=== PATIENT | female | born 1980 | race Hispanic/Latino ===

== ENCOUNTER 2018-11-07 20:07 | Emergency (ER) | payer MEDICAID ==
[2018-11-07 20:59] LABS: Bilirubin,Urine NEG (Negative); Blood,Urine LG (Negative); Color,Urine Red (Yellow); Urobilinogen,Urine < 2.0 mg/dL (<2.0)
[2018-11-07] MEDS ORDERED: NACL 0.9% 1000 ML 1,000 ML IV ONE (20:59)
[2018-11-07 21:01] LABS: RBC,Urine > 182.0 /HPF (0.0-6.0)
--- NOTE | 2018-11-07 21:03 | Emergency Department Report ---
HPI - General Chief Complaint: Abdominal Pain Time Seen by Provider: 11/07/18 20:51 - HPI HPI: Room 26 The patient is 38-year-old female presented with a chief complaint of abdominal pain and vaginal bleeding. The patient states she is but does not know how far along she is. The patient states her LMP was in August and she has not yet seen an WEIGHT LOSS COUNSELOR or had an ultrasound for this . The patient states approximately one hour ago she developed lower abdominal pain initially on the left but now bilaterally as well as heavy vaginal bleeding. Patient states she's been passing blood as well as blood clots but does not believe she is passed tissue. The patient states she is gone through 2 pads so far and has had to change her clothes twice secondary to the vaginal bleeding. Location: Pelvis Duration: One hour Quality: Pain Severity: Moderate Modifying factors: [see above] Context: [see above] Mode of transportation: [not driving] ED Past Medical Hx - Past Medical History Previous Medical History?: No - Surgical History Past Surgical History?: Yes Additional Surgical History: C-Sec X1 - Family History Family history: no significant (none 2 weeks) - Social History Smoking Status: Former Smoker Substance Use Type: None (denies illicit drug use) ED Review of Systems ROS: Stated complaint: VAGINAL BLEEDING 10WKS Other details as noted in HPI Constitutional: no symptoms reported Eyes: denies: eye pain ENT: denies: throat pain Respiratory: no symptoms reported Cardiovascular: denies: chest pain Endocrine: no symptoms reported Gastrointestinal: abdominal pain Genitourinary: abnormal menses Musculoskeletal: denies: back pain Neurological: denies: headache Physical Exam - Physical Exam Vital Signs: Vital Signs 11/07/18 20:12 Temperature 98.9 F Pulse Rate 75 Respiratory 22 Rate Blood Pressure 175/79 O2 Sat by Pulse 97 Oximetry Physical Exam: GENERAL: The patient is well-developed well-nourished female lying on stretcher moaning, appearing to be in moderate discomfort. [] HEENT: Normocephalic. Atraumatic. Extraocular motions are intact. Patient has moist mucous membranes. NECK: Supple. Trachea midline CHEST/LUNGS: Clear to auscultation. There is no respiratory distress noted. HEART/CARDIOVASCULAR: Regular. There is no tachycardia. There is no gallop rub or murmur. ABDOMEN: Abdomen is soft, diffuse discomfort to palpation. Patient has normal bowel sounds. There is no abdominal distention. SKIN: There is no rash. There is no edema. There is no diaphoresis. NEURO: The patient is awake, alert, and oriented. The patient is cooperative. The patient has normal speech MUSCULOSKELETAL: There is no evidence of acute injury. ED Course Vital Signs 11/07/18 20:12 Temperature 98.9 F Pulse Rate 75 Respiratory 22 Rate Blood Pressure 175/79 O2 Sat by Pulse 97 Oximetry ED Medical Decision Making - Lab Data Result diagrams: 11/07/18 21:03 11/07/18 21:03 Laboratory Tests 11/07/18 11/07/18 11/07/18 20:30 21:03 21:03 WBC 12.0 H RBC 4.88 Hgb 12.9 Hct 37.9 MCV 78 L MCH 26 L MCHC 34 RDW 14.8 Plt Count 468 H Lymph % (Auto) 16.7 [place] % (Auto) 6.3 Eos % (Auto) 0.5 Baso % (Auto) 0.7 Lymph # 2.0 [place] # 0.8 Eos # 0.1 Baso # 0.1 Seg Neutrophils % 75.8 H Seg Neutrophils # 9.1 H Sodium 137 Potassium 4.1 Chloride 104.4 Carbon Dioxide 23 Anion Gap 14 BUN 8 Creatinine 0.5 L Estimated GFR > 60 BUN/Creatinine Ratio 16 Glucose 89 Calcium 9.6 Total Bilirubin 0.20 AST 15 ALT 18 Alkaline Phosphatase 66 Total Protein 7.1 Albumin 3.9 Albumin/Globulin Ratio 1.2 HCG, Quant Urine Color Red Urine Turbidity Slightly-cloudy Urine pH 6.0 Ur Specific [place] 1.006 Urine Protein 100 mg/dl Urine Glucose (UA) Neg Urine Ketones Neg Urine Blood Lg Urine Nitrite Neg Urine Bilirubin Neg Urine Urobilinogen < 2.0 Ur Leukocyte Esterase Tr Urine WBC (Auto) 3.0 Urine RBC (Auto) > 182.0 Blood Type Antibody Screen 11/07/18 11/07/18 21:03 21:03 WBC RBC Hgb Hct MCV MCH MCHC RDW Plt Count Lymph % (Auto) [place] % (Auto) Eos % (Auto) Baso % (Auto) Lymph # [place] # Eos # Baso # Seg Neutrophils % Seg Neutrophils # Sodium Potassium Chloride Carbon Dioxide Anion Gap BUN Creatinine Estimated GFR BUN/Creatinine Ratio Glucose Calcium Total Bilirubin AST ALT Alkaline Phosphatase Total Protein Albumin Albumin/Globulin Ratio HCG, Quant 14726 H Urine Color Urine Turbidity Urine pH Ur Specific [place] Urine Protein Urine Glucose (UA) Urine Ketones Urine Blood Urine Nitrite Urine Bilirubin Urine Urobilinogen Ur Leukocyte Esterase Urine WBC (Auto) Urine RBC (Auto) Blood Type O POSITIVE Antibody Screen Negative - Radiology Data Radiology results: report reviewed (pelvic ultrasound), image reviewed (pelvic ultrasound) [facility] [address] [place] [address] Ultrasound Report Signed Patient: ARLETTE MCMAHAN MR#: [id number] : 1980 Acct:[id number] Age/Sex: 38 / F ADM Date: 11/07/18 Loc: ED Attending Dr: Ordering Physician: LEONCIO WILSON MD Date of Service: 11/07/18 Procedure(s): US OB transvaginal Accession Number(s): [id number] cc: LEONCIO WILSON MD FINAL REPORT PROCEDURE: US OB lt; = 14 WEEKS FETUS TECHNIQUE: Real-time transabdominal and transvaginal sonography of the uterus, placenta, amniotic fluid, adnexa, and fetus was performed with image documentation. Measurements were obtained to determine age/size. M-mode Doppler was used to document heartbeat. CPT 49106 and 78021 HISTORY: vaginal bleeding, lower abdominal pain COMPARISON: No prior studies are available for comparison. FINDINGS: CRL: 12 mm, which corresponds to a gestational age of: 7 weeks, 2 days. Yolk Sac: Normal. Embryonic Cardiac Activity: 143 beats per minute. Gestational Sac: Normal. Amniotic fluid: Normal. Cervix: Normal. Right Ovary: Not visualized. Left Ovary: Not visualized Estimated delivery date: June 24, 2019 Uterus and adnexa: Normal. IMPRESSION: 1. Single live intrauterine gestation at approximately 7 weeks, 2 days. 2. EDC by US June 24, 2019 Transcribed By: BRP Dictated By: NATALIYA CARRIZALES MD Electronically Authenticated By: NATALIYA CARRIZALES MD Signed Date/Time: 11/07/182301 DD/ 00 TD/TT: 11/07/182300 - Medical Decision Making Patient advised to undergo bedrest and pelvic rest until seen by WEIGHT LOSS COUNSELOR - Differential Diagnosis spontaneous , threatened , inevitable , ectopic Critical care attestation.: If time is entered above; I have spent that time in minutes in the direct care of this critically ill patient, excluding procedure time. ED Disposition Clinical Impression: Threatened Disposition: DC-01 TO HOME OR SELFCARE Is pt being admited?: No Does the pt Need Aspirin: No Condition: Stable Instructions: Abdominal Pain (ED), Threatened Miscarriage (ED) Additional Instructions: Return to the emergency department immediately should you develop worsening symptoms, fever, inability to tolerate food or liquid or any other concerns. Referrals: LINDSAY CAPONE MD [Primary Care Provider] - 3-5 Days RADHA PEREZ MD [Staff Physician] - [facility] Time of Disposition: 23:14
[2018-11-07 21:26] LABS: Basophils # (Auto) 0.1 K/mm3 (0.0-0.1); Basophils % (Auto) 0.7 % (0.0-1.8); Eosinophils # (Auto) 0.1 K/mm3 (0.0-0.4); Eosinophils % (Auto) 0.5 % (0.0-4.3); Hematocrit 37.9 % (30.3-42.9); Hemoglobin 12.9 gm/dl (10.1-14.3); Lymphocytes % (Auto) 16.7 % (13.4-35.0); Mean Corpuscular HGB Conc 34 % (30-34); Mean Corpuscular Volume 78 fl (79-97); Monocytes # (Auto) 0.8 K/mm3 (0.0-0.8); Monocytes % (Auto) 6.3 % (0.0-7.3); Platelet Count 468 K/mm3 (140-440); Red Blood Count 4.88 M/mm3 (3.65-5.03); Red Cell Distribution Width 14.8 % (13.2-15.2)
[2018-11-07 21:45] LABS: Alanine Aminotransferase 18 units/L (7-56); Albumin 3.9 g/dL (3.9-5); BUN/Creatinine Ratio 16; Blood Urea Nitrogen 8 mg/dL (7-17); Calcium 9.6 mg/dL (8.4-10.2); Hemolysis Index 18
--- NOTE | 2018-11-07 23:01 | Ultrasound Report ---
FINAL REPORT PROCEDURE: US OB <= 14 WEEKS FETUS TECHNIQUE: Real-time transabdominal and transvaginal sonography of the uterus, placenta, amniotic fl uid, adnexa, and fetus was performed with image documentation. Measurements were obtained to determin e age/size. M-mode Doppler was used to document heartbeat. CPT 60426 and 55468 HISTORY: vaginal bleeding, lower abdominal pain COMPARISON: No prior studies are available for comparison. FINDINGS: CRL: 12 mm, which corresponds to a gestational age of: 7 weeks, 2 days. Yolk Sac: Normal. Embryonic Cardiac Activity: 143 beats per minute. Gestational Sac: Normal. Amniotic fluid: Normal. Cervix: Normal. Right Ovary: Not visualized. Left Ovary: Not visualized Estimated delivery date: June 24, 2019 Uterus and adnexa: Normal. IMPRESSION: 1. Single live intrauterine gestation at approximately 7 weeks, 2 days. 2. EDC by US June 24, 2019
--- NOTE | 2018-11-07 23:02 | Ultrasound Report ---
FINAL REPORT PROCEDURE: US OB <= 14 WEEKS FETUS TECHNIQUE: Real-time transabdominal and transvaginal sonography of the uterus, placenta, amniotic fl uid, adnexa, and fetus was performed with image documentation. Measurements were obtained to determin e age/size. M-mode Doppler was used to document heartbeat. CPT 89732 and 46441 HISTORY: vaginal bleeding, lower abdominal pain COMPARISON: No prior studies are available for comparison. FINDINGS: CRL: 12 mm, which corresponds to a gestational age of: 7 weeks, 2 days. Yolk Sac: Normal. Embryonic Cardiac Activity: 143 beats per minute. Gestational Sac: Normal. Amniotic fluid: Normal. Cervix: Normal. Right Ovary: Not visualized. Left Ovary: Not visualized Estimated delivery date: June 24, 2019 Uterus and adnexa: Normal. IMPRESSION: 1. Single live intrauterine gestation at approximately 7 weeks, 2 days. 2. EDC by US June 24, 2019
[2018-11-07 23:34] VITALS: BP 162/79
== END 2018-11-07 23:35 | disposition home or self-care (01) ==
LOC: ED 20:07
DX: O20.0 Threatened abortion (principal); Z3A.01 Less than 8 weeks gestation of pregnancy; Z87.891 Personal history of nicotine dependence
CPT/HCPCS: 36415; 76801; 76817; 80053; 81001; 84702; 85025; 86850; 86900; 86901; 99284; J7030